=== PATIENT | female | born 1930 | race Caucasian/White ===

== ENCOUNTER 2016-07-22 15:31 | Emergency (ER) | payer MEDICARE ==
[~2016-07-22] VITALS: Ht 160 cm; Wt 77.0 kg
[~2016-07-22 15:31] MED LIST: AMLO5 PO; CIPR-9 PO; HYDR-3516 PO; LATA0.002 EACH EYE; METO25TA3 PO; METO50TA PO; SIMV20TA PO; TIMO5SOL EACH EYE; WALKER WHEELS/F1 MIS; XARE10TA PO; XARE20TA PO
[2016-07-22 15:35] VITALS: BP 214/89; PULSE 52; RESP 17; TEMP 97.9; O2SAT 98
--- NOTE | 2016-07-22 15:41 | PD ---
HPI Chief Complaint: elevated bp Time Seen by Provider: 15:35 Travel History International Travel<30 days: No Contact w/Intl Traveler<30days: No Traveled to known affect area: No History of Present Illness HPI Patient presents with concerns of elevated blood pressure. Reports a blood pressure checked at home today of 220/90. She is otherwise asymptomatic. Denies any headache. Denies any chest pain shortness of breath urinary or bowel symptoms. Reports that she was discharged from rehabilitation 4 days ago. She takes multiple medications for hypertension. Reports that amlodipine which she previously took was not continued at the time of discharge. PFSH Past Medical History Cardiovascular Problems: Yes (A FIB) High Cholesterol: Yes Diminished Hearing: No Hypertension: Yes Immunizations Current: Yes Past Surgical History Cardiac Surgery: Yes (CAROTID ENDARTERECTOMY) Cholecystectomy: Yes Social History Alcohol Use: No Tobacco Use: No Substance Use: No Allergies-Medications (Allergen,Severity, Reaction): Coded Allergies: Biaxin (Verified Allergy, Unknown, 07/22/16) Reported Meds & Prescriptions Reported Meds & Active Scripts Active Walker with Front Wheels (Device) 1 Mis Mis 1 Ea .ROUTE DIRECTED Reported Biotin Maximum Strength (Biotin) 10,000 Mcg Tab 10,000 Mcg PO Vitamin D (Cholecalciferol) 1,000 Unit Tab 1,000 Units PO DAILY Vitamin E 400 Unit Cap 400 Units PO DAILY Metoprolol Tartrate 50 Mg Tab 50 Mg PO BID Latanoprost Opth Drops (Latanoprost) 0.005% Drops 1 Drop EACH EYE HS Refrigerate until opened. Timolol Opth Drops 0.25 % Soln 1 Drop EACH EYE BID Simvastatin 20 Mg Tab 20 Mg PO DAILY Norvasc (Amlodipine Besylate) 5 Mg Tab 5 Mg PO DAILY Xarelto (Rivaroxaban) 20 Mg Tab 20 Mg PO DAILY Review of Systems General / Constitutional: No: Fever Eyes: No: Visual changes HENT: No: Headaches Cardiovascular: No: Chest Pain or Discomfort Respiratory: No: Shortness of Breath Gastrointestinal: No: Abdominal Pain Genitourinary: No: Dysuria Musculoskeletal: No: Pain Skin: No Rash Neurologic: No: Weakness Psychiatric: No: Depression Endocrine: No: Polydipsia Hematologic/Lymphatic: No: Easy Bruising Physical Exam Narrative GENERAL: Well-nourished, well-developed patient. SKIN: Warm and dry. HEAD: Normocephalic. EYES: No scleral icterus. No injection or drainage. NECK: Supple, trachea midline. No JVD or lymphadenopathy. CARDIOVASCULAR: Regular rate and rhythm without murmurs, gallops, or rubs. RESPIRATORY: Breath sounds equal bilaterally. No accessory muscle use. GASTROINTESTINAL: Abdomen soft, non-tender, nondistended. MUSCULOSKELETAL: No cyanosis, or edema. BACK: Nontender without obvious deformity. No CVA tenderness. Data Data Orders Clonidine (Catapres) (07/22/16 15:45) Vital Signs (Adult) CECILIA.Q4H (07/22/16 16:30) MDM Medical Decision Making Medical Screen Exam Complete: Yes Emergency Medical Condition: Yes Differential Diagnosis Urgent hypertension, poor medication compliance, uncontrolled hypertension Narrative Course Assessment and plan discussed with patient at bedside. Patient received clonidine by mouth. Physician Communication Physician Communication Case discussed and care transferred to Carlos Schrader MD Jul 22, 2016 15:41
[2016-07-22] MEDS ORDERED: cloNIDine HCL 0.2 MG TAB PO ONE (15:45)
[2016-07-22] MEDS ORDERED: BIOT1TAB2 PO (15:59)
[2016-07-22] MEDS ORDERED: VITA400C2 PO (15:59)
[2016-07-22] MEDS ORDERED: VITA100064 PO (15:59)
[2016-07-22] MEDS ORDERED: METO50TA PO (15:59)
[2016-07-22 16:33] VITALS: BP 198/80; PULSE 44; RESP 20; O2SAT 96
--- NOTE | 2016-07-22 16:42 | PD ---
Physical Exam Date Seen by Provider: Jul 22, 2016 Narrative Care was assumed from Dr. Garibay. Patient has been out of her usual blood pressure medication. She is totally asymptomatic. Data Data Last Documented VS Vital Signs Date Time Temp Pulse Resp B/P Pulse Ox O2 Delivery O2 Flow Rate FiO2 07/22/16 16:33 44 20 198/80 96 07/22/16 16:00 Room Air 07/22/16 15:35 97.9 Orders Clonidine (Catapres) (07/22/16 15:45) Vital Signs (Adult) CECILIA.Q4H (07/22/16 16:30) MDM Supervised Visit with NESTOR: No Narrative Course Patient presented for treatment of elevated blood pressure. She reported that she is out of her usual blood pressure medication. She is asymptomatic. She is stable for discharge. Diagnosis Primary Impression: Hypertension Qualified Code: I10 - Essential hypertension Additional Instruction: Take your usual blood pressure medication. Follow-up with your primary care provider at home. Disposition: 01 DISCHARGE HOME Condition: Stable Alondra Rosenthal MD Jul 22, 2016 16:42
== END 2016-07-22 17:01 | disposition home or self-care (01) ==
LOC: PHED 15:31
DX: I10 Essential (primary) hypertension (principal); I48.91 Unspecified atrial fibrillation; E78.00 Pure hypercholesterolemia, unspecified; Z79.899 Other long term (current) drug therapy
CPT/HCPCS: 99283